=== PATIENT | female | born 1990 | race Caucasian/White ===

== ENCOUNTER 2021-06-30 17:33 | Emergency (ER) | payer OTHER, SELFPAY ==
[2021-06-30 17:39] VITALS: BP 129/87; PULSE 73; RESP 18; O2SAT 98; BMI 36.6
--- NOTE | 2021-06-30 23:04 | PC.NURSE ---
pt called twice to update her vitals and pt is not in the waiting room at this time. and 5 min before this as well.
== END 2021-06-30 20:19 | disposition left against medical advice (07) ==
PROVIDERS: Emergency Provider Emergency Medicine; PCP Internal Medicine
DX: R10.9 Unspecified abdominal pain (principal); R11.10 Vomiting, unspecified
CPT/HCPCS: 99281